=== PATIENT | female | born 1960 | race Caucasian/White ===

== ENCOUNTER 2017-07-16 08:10 | Inpatient (IN) | payer OTHER ==
[2017-07-16 08:19] VITALS: BMI 27.0
--- NOTE | 2017-07-16 08:40 | PDOC ---
Attending Attestation - HPI HPI: 07/16/17 09:35 The patient is a 56 year old female with no significant past medical history who presents to the emergency department this morning with diarrhea for 5 days. Patient states that she had [employer] yesterday and notes that she does not normally eat fast food. - Physicial Exam PE: 07/16/17 09:36 GENERAL: Awake, alert, and fully oriented, in no acute distress HEAD: No signs of trauma EYES: PERRLA, EOMI, sclera anicteric, conjunctiva clear ENT: Auricles normal inspection, hearing grossly normal, nares patent, oropharynx clear without exudates. Moist mucosa NECK: Normal ROM, supple, no lymphadenopathy, JVD, or masses LUNGS: Breath sounds equal, clear to auscultation bilaterally. No wheezes, and no crackles HEART: Regular rate and rhythm, normal S1 and S2, no murmurs, rubs or gallops ABDOMEN: Soft, nontender, normoactive bowel sounds. No guarding, no rebound. No masses EXTREMITIES: Normal range of motion, no edema. No clubbing or cyanosis. No cords, erythema, or tenderness NEUROLOGICAL: Cranial nerves II through XII grossly intact. Normal speech, normal gait SKIN: Warm, Dry, normal turgor, no rashes or lesions noted. - Medical Decision Making 07/16/17 09:37 Documentation prepared by Deepak Julien, acting as medical assistant instructor for Carmella Aldana DO. <Deepak Julien - Last Filed: 07/16/17 09:35> - Resident Resident Name: Alfred Maxwell - ED Attending Attestation I have performed the following: I have examined & evaluated the patient, The case was reviewed & discussed with the resident, I agree w/resident's findings & plan, Exceptions are as noted - Medical Decision Making 07/16/17 08:40 I, Dr. Carmella Aldana DO, attest that this document has been prepared under my direction and personally reviewed by me in its entirety. I further attest, that it accurately reflects all work, treatment, procedures and medical decision -making performed by me. 07/16/17 09:30 56yo female with 5 episodes of diarrhea and then low bp this AM pt denies abd pain exam normal no abd ttp will check labs, ivf hydration reassess 07/16/17 11:39 elevated wbc, given diarrhea will obtain ct abd/pelvis to r/o colitis 07/16/17 15:03 pt states feeling better pmd marybeth easley discussed lab and imaging results. Pt willing to stay for further eval 07/16/17 15:[address] Jones accepts pt to service will start levaquin and flagyl <Carmella Aldana - Last Filed: 07/16/17 15:27>
--- NOTE | 2017-07-16 09:10 | PDOC ---
History of Present Illness - General Chief Complaint: Blood Pressure Problem Stated Complaint: LOW BLOOD PRESSURE Time Seen by Provider: 07/16/17 08:33 - History of Present Illness Initial Comments: 07/16/17 09:21 56 yo with no significant pmh who presents with vomitting. Patient reports four episodes of non bloody, loose stools this AM, followed by transient episode of lightheadedness, with no asx LOC or vomiting. Reports at home SBP ~90 following diarrhea. Reports eating at fast food restaurant yesterday evening. Mild, now resolved, burning, epigastria pain. diarrhea, BPR. Has not attempted PO intake today. Denies F/C, CP, SOB, urinary complaints, vaginal bleeding, weakness. Denies h/o abdominal procedures. Currently asymptomatic. Past History - Past Medical History Allergies/Adverse Reactions: Allergies Allergy/AdvReac Type Severity Reaction Status Date / Time acetaminophen [From Percocet] Allergy Severe heart Verified 07/16/17 08:14 palpitations oxycodone [From Percocet] Allergy Severe heart Verified 07/16/17 08:14 palpitations Home Medications: Ambulatory Orders Amlodipine Besylate [Norvasc -] 10 mg PO DAILY 05/18/15 COPD: No HTN: Yes - Immunization History Immunization Up to Date: No - Suicide/Smoking/Psychosocial Hx Smoking History: Never smoked Have you smoked in the past 12 months: No Hx Alcohol Use: No Drug/Substance Use Hx: No Review of Systems - Review of Systems Comments:: 07/16/17 09:09 GENERAL/CONSTITUTIONAL: No fever or chills. No weakness. HEAD, EYES, EARS, NOSE AND THROAT: No change in vision. No ear pain or discharge. No sore throat.- CARDIOVASCULAR: No chest pain or shortness of breath RESPIRATORY: No cough, wheezing, or hemoptysis. GASTROINTESTINAL: + Diarrhea. No vomitting or constipation. GENITOURINARY: No dysuria, frequency, or change in urination. MUSCULOSKELETAL: No joint or muscle swelling or pain. No neck or back pain. SKIN: No rash NEUROLOGIC: No headache, vertigo, loss of consciousness, or change in strength/ sensation. ENDOCRINE: No increased thirst. No abnormal weight change HEMATOLOGIC/LYMPHATIC: No anemia, easy bleeding, or history of blood clots. ALLERGIC/IMMUNOLOGIC: No hives or skin allergy. *Physical Exam - Vital Signs Last Vital Signs Temp Pulse Resp BP Pulse Ox 98.9 F 80 18 111/54 100 07/16/17 08:31 07/16/17 08:45 07/16/17 08:45 07/16/17 08:45 07/16/17 08:45 - Physical Exam Comments: 07/16/17 09:09 GENERAL: Awake, alert, and fully oriented, in no acute distress HEAD: No signs of trauma, normocephalic, atraumatic EYES: PERRLA, EOMI, sclera anicteric, conjunctiva clear ENT: Hearing grossly normal, nares patent, oropharynx clear without exudates. Moist mucosa NECK: Normal ROM, supple, no lymphadenopathy, JVD, or masses LUNGS: No distress, speaks full sentences, clear to auscultation bilaterally HEART: Regular rate and rhythm, normal S1 and S2, no murmurs, rubs or gallops, peripheral pulses normal and equal bilaterally. ABDOMEN: Soft, nontender, normoactive bowel sounds. No guarding, no rebound. No masses. No rigidity. neg CVA ttp. Neg suprapubic ttp. EXTREMITIES : Normal inspection, Normal range of motion, no edema. No clubbing or cyanosis. SKIN: Warm, Dry, normal turgor, no rashes or lesions noted. ED Treatment Course - LABORATORY CBC & Chemistry Diagram: 07/16/17 09:50 07/16/17 09:50 Medical Decision Making - Medical Decision Making 07/16/17 09:31 56 yo with h/o cholecystectomy who presents with four episodes of non bloody, loose stools this AM, followed by transient episode of lightheadedeness, with no asx vomitting. Reports at home SBP ~90 following diarrhea. Mild, now resolved , burning, epigastria pain. Has not attempted PO intake today. Denies F/C, CP, SOB, urinary complaints, vaginal bleeding, weakness. Denies h/o abdominal procedures. Currently asymptomatic. Physical exam unremarkable. BP 111/54. S/s most likely 2/2 viral gastroenteritis. Neg exam findings. Less likely colitis, appendicitis, cystitis. ED Course: CBC, CMP, Lipase, Cardiac Profile, UA EKG Pepcid, Zofran, IV LR 07/16/17 10:53 WBC: 21.0. 92 % PMN 02/04/18 10:53 H/H: 16.2/49.3 07/16/17 12:43 UA: Neg CMP: Unremarkable 07/16/17 15:10 CT AP: Fluid filled non dilated small bowel loops. Possible enteritis. Contacted PMD Nixon Cadena (PMD). Will admit to obs med/surg. Belen Whalen. *DC/Admit/Observation/Transfer Diagnosis at time of Disposition: Abdominal pain - Discharge Dispostion Admit: Yes - Referrals - Patient Instructions - Post Discharge Activity
[2017-07-16] MEDS ORDERED: ONDANSETRON 4 MG/2 ML VIAL IVPUSH ONE (09:22)
[2017-07-16] MEDS ORDERED: LACTATED RINGERS SOLUTION 1000 ML INFUS.BAG IV ONE (09:30)
[2017-07-16] MEDS ORDERED: ONDANSETRON 4 MG/2 ML VIAL ONE (09:41)
[2017-07-16] MEDS ORDERED: FAMOTIDINE 20 MG/50 ML IVPB 20 MG/50 ML MG IVPB ONE ×2 (09:42→10:00)
[2017-07-16 10:32] LABS: HEMATOCRIT 49.3 % (32.4-45.2); HEMOGLOBIN 16.2 GM/dL (10.7-15.3); MCH 29.2 pg (25.7-33.7); MCHC 32.9 g/dl (32.0-36.0); MEAN CELL VOLUME 88.8 fl (80-96); MEAN PLT VOLUME 9.4 fl (7.5-11.1); PLATELET COUNT 220 K/MM3 (134-434); RBC 5.55 M/mm3 (3.60-5.2); RDW 12.7 % (11.6-15.6)
[2017-07-16 10:37] LABS: URINE APPEARANCE SLCLOUDY; URINE BILIRUBIN NEGATIVE (NEGATIVE); URINE BLOOD NEGATIVE (NEGATIVE); URINE COLOR YELLOW; URINE GLUCOSE (UA) 1+ (NEGATIVE); URINE KETONE NEGATIVE (NEGATIVE); URINE LEUK ESTERASE NEGATIVE (NEGATIVE); URINE NITRITE NEGATIVE (NEGATIVE); URINE UROBILINOGEN NEGATIVE mg/dL (0.2-1.0)
[2017-07-16 10:39] LABS: URINE PROTEIN 2+ (NEGATIVE)
[2017-07-16 10:40] LABS: INR 0.99 (0.82-1.09); PROTHROMBIN TIME (PATIENT) 11.2 SEC (9.98-11.88); URINE HYALINE CAST 26 /lpf; URINE MUCUS MODERATE
[2017-07-16] MEDS ORDERED: LACTATED RINGERS SOLUTION 1,000 ML/1,000 ML INFUS.BAG IV STA (10:55)
[2017-07-16 10:56] LABS: ALBUMIN 4.4 g/dl (3.4-5.0); ALK PHOS 98 U/L (45-117); ANION GAP 8 (8-16); BILIRUBIN,TOTAL 0.6 mg/dL (0.2-1.0); BLOOD UREA NITROGEN 19 mg/dL (7-18); CHLORIDE 109 mmol/L (98-107); CO2 25 mmol/L (21-32); CREATININE 0.8 mg/dL (0.55-1.02); GLUCOSE,RANDOM 94 mg/dL (74-106); LIPASE 147 U/L (73-393); POTASSIUM 4.3 mmol/L (3.5-5.1); SGOT/AST 32 U/L (15-37); SGPT/ALT 62 U/L (12-78); SODIUM 142 mmol/L (136-145); TOT PROT 8.1 g/dl (6.4-8.2)
[2017-07-16 11:14] LABS: PLATELET ESTIMATE ADEQUATE
--- NOTE | 2017-07-16 12:16 | EKG ---
Test Reason : Blood Pressure : / mmHG Vent. Rate : 059 BPM Atrial Rate : 059 BPM P-R Int : 140 ms QRS Dur : 082 ms QT Int : 418 ms P-R-T Axes : 064 039 046 degrees QTc Int : 413 ms SINUS BRADYCARDIA POOR R WAVE PROGRESSION ABNORMAL ECG WHEN COMPARED WITH ECG OF 19-MAY-2015 03:47, NOTE ERROR IN LEAD V4, RECOMMEND REPEAT TRACING Confirmed by BRENDA MONTILLA, JUDY ([id number]) on 07/16/2017 12:16:39 PM Referred By: Confirmed By:JUDY GUTIERREZ MD
[2017-07-16] MEDS ORDERED: ACETAMINOPHEN 325 MG TABLET (FP) PO PRN (17:38)
[2017-07-16] MEDS ORDERED: ONDANSETRON 4 MG/2 ML VIAL IVPUSH PRN (17:41)
[2017-07-16] MEDS: D5-1/2NS+20 MEQ KCL - 20 MEQ/1,000 ML INFUS.BAG IV SCH (19:41)
[2017-07-16] MEDS: HEPARIN NA (PORCINE) 5,000 UNITS/ML 1ML VIAL SQ SCH (21:16)
[2017-07-17 07:35] LABS: BASO % 0.3 % (0-2.0); EOS % 0.3 % (0-4.5); HEMATOCRIT 39.6 % (32.4-45.2); HEMOGLOBIN 13.1 GM/dL (10.7-15.3); LYMPH % 17.5 % (8-40); MCH 29.3 pg (25.7-33.7); MCHC 33.1 g/dl (32.0-36.0); MEAN CELL VOLUME 88.5 fl (80-96); MEAN PLT VOLUME 9.9 fl (7.5-11.1); MONO % 8.7 % (3.8-10.2); NEUT % 73.2 % (42.8-82.8); PLATELET COUNT 155 K/MM3 (134-434); RBC 4.47 M/mm3 (3.60-5.2); RDW 12.8 % (11.6-15.6); WHITE BLOOD COUNT 8.8 K/mm3 (4.0-10.0)
[2017-07-17 08:16] LABS: ALBUMIN 3.1 g/dl (3.4-5.0); ANION GAP 9 (8-16); BILIRUBIN,TOTAL 0.6 mg/dL (0.2-1.0); BLOOD UREA NITROGEN 9 mg/dL (7-18); CALCIUM 7.8 mg/dL (8.5-10.1); CHLORIDE 108 mmol/L (98-107); CO2 25 mmol/L (21-32); CREATININE 0.7 mg/dL (0.55-1.02); GLUCOSE,RANDOM 112 mg/dL (74-106); MAGNESIUM 1.8 mg/dL (1.8-2.4); POTASSIUM 3.8 mmol/L (3.5-5.1); SGOT/AST 20 U/L (15-37); SGPT/ALT 39 U/L (12-78); SODIUM 142 mmol/L (136-145); TOT PROT 5.8 g/dl (6.4-8.2)
[2017-07-17 08:17] LABS: ALK PHOS 62 U/L (45-117)
[2017-07-17] MEDS: D5-1/2NS+20 MEQ KCL - 20 MEQ/1,000 ML INFUS.BAG IV SCH ×3 (08:30→22:11)
[2017-07-17] MEDS: HEPARIN NA (PORCINE) 5,000 UNITS/ML 1ML VIAL SQ SCH ×2 (09:58→21:05)
--- NOTE | 2017-07-17 10:32 | HP ---
Admitting History and Physical - Primary Care Physician PCP: Tello Ford - Admission History of Present Illness: 56 yo with h/o cholecystectomy, htn who presents with four episodes of non bloody, loose stools tp er yesterday Also complained of dizziness had [employer] no other family member sick Wbc - 22 [address] ct - colitis Pt given fluids/ abx- admitted Case was discussed with er physician. Orders were written. pt seen today by me fells better. denies pain diarrhea better low grade temp History Source: Patient Limitations to Obtaining History: No Limitations - Past Medical History Cardiovascular: Yes: HTN - Past Surgical History Past Surgical History: Yes: Cholecystectomy - Smoking History Smoking history: Never smoked Have you smoked in the past 12 months: No - Alcohol/Substance Use Hx Alcohol Use: No Home Medications - Allergies Allergies/Adverse Reactions: Allergies Allergy/AdvReac Type Severity Reaction Status Date / Time acetaminophen [From Percocet] Allergy Severe heart Verified 07/16/17 08:14 palpitations oxycodone [From Percocet] Allergy Severe heart Verified 07/16/17 08:14 palpitations - Home Medications Home Medications: Ambulatory Orders Amlodipine Besylate [Norvasc -] 10 mg PO DAILY 05/18/15 Family Disease History - Family Disease History Family History: Unremarkable Review of Systems - Review of Systems Constitutional: reports: Fever, Loss of Appetite, Weakness Eyes: reports: No Symptoms HENT: reports: No Symptoms Neck: reports: No Symptoms Cardiovascular: reports: No Symptoms Respiratory: reports: No Symptoms Gastrointestinal: reports: Diarrhea, Nausea Genitourinary: reports: No Symptoms Musculoskeletal: reports: No Symptoms Neurological: reports: No Symptoms Endocrine: reports: No Symptoms Hematology/Lymphatic: reports: No Symptoms Psychiatric: reports: No Symptoms Physical Examination Vital Signs: Vital Signs Temperature 99.9 F H 07/17/17 06:00 Pulse Rate 82 07/17/17 06:00 Respiratory Rate 20 07/17/17 06:00 Blood Pressure 116/63 07/17/17 06:00 O2 Sat by Pulse Oximetry (%) 100 07/16/17 17:54 Constitutional: Yes: No Distress, Calm Eyes: Yes: Conjunctiva Clear HENT: Yes: Other (mucosa moist) Neck: Yes: Supple Cardiovascular: Yes: Regular Rate and Rhythm Respiratory: Yes: CTA Bilaterally Gastrointestinal: Yes: Normal Bowel Sounds, Soft Edema: No Neurological: Yes: Alert Labs: CBC, BMP 07/17/17 06:00 07/17/17 06:00 Imaging - Results Cat Scan: Report Reviewed EKG: Report Reviewed Problem List - Problems (1) Colitis Assessment/Plan: [place] Infectious. Better Continue Abx Wbc decreased significantly start on diet. Pt reports had colonoscopy 2 yrs ago and was ok. f/u labs GI consult requested. stool culture/ c diff pending Anticipate short stay will follow Code(s): K52.9 - NONINFECTIVE GASTROENTERITIS AND COLITIS, UNSPECIFIED (2) Hypertension Assessment/Plan: Hold Medicine for now Code(s): I10 - ESSENTIAL (PRIMARY) HYPERTENSION Qualifiers: Hypertension type: essential hypertension Qualified Code(s): I10 - Essential (primary) hypertension (3) DVT prophylaxis Assessment/Plan: Heparin s/q Ambulate Code(s): OFC6753 -
--- NOTE | 2017-07-17 19:20 | CON.GI ---
Consult Consult Specialty:: GI Referred by:: Dr Sruthi Jones - History of Present Illness History of Present Illness: 56 y/o F with PMH of HTN was doing well until yesterday when she developed non bloody diarrhea several times associated with mild abdominal pain assoicated with leukocystosis, SHe denies recent antiobiotic use and recent travel history. - Past Medical History Cardio/Vascular: Yes: HTN - Past Surgical History Past Surgical History: Yes: Cholecystectomy - Alcohol/Substance Use Hx Alcohol Use: No - Smoking History Smoking history: Never smoked Have you smoked in the past 12 months: No Home Medications - Allergies Allergies/Adverse Reactions: Allergies Allergy/AdvReac Type Severity Reaction Status Date / Time acetaminophen [From Percocet] Allergy Severe heart Verified 07/16/17 08:14 palpitations oxycodone [From Percocet] Allergy Severe heart Verified 07/16/17 08:14 palpitations - Home Medications Home Medications: Ambulatory Orders Amlodipine Besylate [Norvasc -] 10 mg PO DAILY 05/18/15 Family Disease History - Family Disease History Family Disease History: CA: Mother (pancreatic cancer) Physical Exam-GI Vital Signs: Vital Signs Temperature 98 F 07/17/17 16:15 Pulse Rate 66 07/17/17 16:15 Respiratory Rate 20 07/17/17 16:15 Blood Pressure 117/62 07/17/17 16:15 O2 Sat by Pulse Oximetry (%) 98 07/17/17 09:00 Constitutional: Yes: Well Nourished Eyes: Yes: Conjunctiva Clear HENT: Yes: Atraumatic Neck: Yes: Supple Cardiovascular: Yes: Regular Rate and Rhythm Respiratory: Yes: CTA Bilaterally ...Auscultate: No: No Bowel Sounds ...Palpate: Yes: Soft. No: Guarding, Hepatomegaly, Mass, Pulsatile Mass, Splenomegaly, Tenderness Labs: CBC, BMP 07/17/17 06:00 07/17/17 06:00 INR, PTT INR 0.99 (0.82-1.09) 07/16/17 09:50 Problem List - Problems (1) Infectious diarrhea Assessment/Plan: resolving R> advance diet--lactose free low afiber diet made aware to follow -up Thank you Code(s): A09 - INFECTIOUS GASTROENTERITIS AND COLITIS, UNSPECIFIED
[2017-07-18 08:03] LABS: BASO % 0.7 % (0-2.0); EOS % 2.2 % (0-4.5); HEMATOCRIT 40.5 % (32.4-45.2); HEMOGLOBIN 13.4 GM/dL (10.7-15.3); LYMPH % 31.5 % (8-40); MCH 29.3 pg (25.7-33.7); MCHC 33.2 g/dl (32.0-36.0); MEAN CELL VOLUME 88.4 fl (80-96); MEAN PLT VOLUME 9.7 fl (7.5-11.1); MONO % 11.7 % (3.8-10.2); NEUT % 53.9 % (42.8-82.8); PLATELET COUNT 151 K/MM3 (134-434); RBC 4.58 M/mm3 (3.60-5.2); RDW 12.8 % (11.6-15.6); WHITE BLOOD COUNT 6.8 K/mm3 (4.0-10.0)
[2017-07-18 08:09] LABS: ALBUMIN 3.3 g/dl (3.4-5.0); ANION GAP 7 (8-16); BLOOD UREA NITROGEN 6 mg/dL (7-18); CALCIUM 8.1 mg/dL (8.5-10.1); CHLORIDE 108 mmol/L (98-107); CO2 28 mmol/L (21-32); CREATININE 0.7 mg/dL (0.55-1.02); GLUCOSE,RANDOM 114 mg/dL (74-106); POTASSIUM 3.9 mmol/L (3.5-5.1); SGOT/AST 33 U/L (15-37); SGPT/ALT 55 U/L (12-78); SODIUM 143 mmol/L (136-145)
[2017-07-18 08:11] LABS: ALK PHOS 61 U/L (45-117); BILIRUBIN,TOTAL 0.5 mg/dL (0.2-1.0); TOT PROT 6.2 g/dl (6.4-8.2)
[2017-07-18] MEDS: HEPARIN NA (PORCINE) 5,000 UNITS/ML 1ML VIAL SQ SCH ×2 (09:54→21:17)
--- NOTE | 2017-07-18 11:54 | PN ---
Progress Note, Physician Chief Complaint: Events noted brother at bedside pt has loose stools after each meal no abdominal pain tolerating po - Current Medication List Current Medications: Active Medications Heparin Sodium (Porcine) (Heparin -) 5,000 unit SQ BID [facility] Last Admin: 07/18/17 09:54 Dose: 5,000 unit Potassium Chloride/Dextrose/Sod Cl (D5-1/2ns+20 Meq Kcl -) 20 meq in 1,000 mls @ 100 mls/hr IV ASDIR [facility] Last Admin: 07/17/17 22:11 Dose: 100 mls/hr Metronidazole (Flagyl 500mg Premixed Ivpb -) 500 mg in 100 mls @ 100 mls/hr IVPB Q6H-IV [facility] Last Admin: 07/18/17 08:33 Dose: 100 mls/hr Levofloxacin (Levaquin 500 Mg Premixed Ivpb -) 500 mg in 100 mls @ 100 mls/hr IVPB DAILY [facility] Last Admin: 07/18/17 09:54 Dose: 100 mls/hr Ondansetron HCl (Zofran Injection) 4 mg IVPUSH Q6H PRN PRN Reason: NAUSEA - Objective Vital Signs: Vital Signs Temperature 98.4 F 07/18/17 09:00 Pulse Rate 70 07/18/17 09:00 Respiratory Rate 16 07/18/17 09:00 Blood Pressure 127/80 07/18/17 09:00 O2 Sat by Pulse Oximetry (%) 98 07/17/17 21:00 Constitutional: Yes: No Distress Cardiovascular: Yes: Regular Rate and Rhythm Respiratory: Yes: CTA Bilaterally Gastrointestinal: Yes: Normal Bowel Sounds, Soft. No: Distention, Tenderness Edema: No Labs: CBC, BMP 07/18/17 06:30 07/18/17 06:30 INR, PTT INR 0.99 (0.82-1.09) 07/16/17 09:50 Problem List - Problems (1) Abdominal pain Code(s): R10.9 - UNSPECIFIED ABDOMINAL PAIN Qualifiers: Abdominal location: upper abdomen, unspecified Qualified Code(s): R10.10 - Upper abdominal pain, unspecified (2) Hypertension Code(s): I10 - ESSENTIAL (PRIMARY) HYPERTENSION Qualifiers: Hypertension type: essential hypertension Qualified Code(s): I10 - Essential (primary) hypertension (3) Infectious diarrhea Code(s): A09 - INFECTIOUS GASTROENTERITIS AND COLITIS, UNSPECIFIED Assessment/Plan plan iv fluids-- decrease rate iv antibiotics stool studies pending WBC normal will dc home in AM if better on po antibiotics
[2017-07-18] MEDS: D5-1/2NS+20 MEQ KCL - 20 MEQ/1,000 ML INFUS.BAG IV SCH (14:35)
--- NOTE | 2017-07-18 18:17 | PN ---
GI Progress Note Subjective: diarrhea resolved, no nausea no vomiting,tlerating diet - Objective Vital Signs: Vital Signs Temperature 98.2 F 07/18/17 17:23 Pulse Rate 63 07/18/17 17:23 Respiratory Rate 20 07/18/17 17:23 Blood Pressure 136/62 07/18/17 17:23 O2 Sat by Pulse Oximetry (%) 98 07/18/17 09:00 Constitutional: Well Nourished Eyes: Yes: Conjunctiva Clear HENT: Yes: Atraumatic Neck: Yes: Supple Cardiovascular: Yes: Regular Rate and Rhythm Respiratory: Yes: CTA Bilaterally ...Palpate: Yes: Soft. No: Firm/Rigid, Guarding, Hepatomegaly, Mass, Pulsatile Mass, Splenomegaly, Tenderness Labs: CBC, BMP 07/18/17 06:30 07/18/17 06:30 INR, PTT INR 0.99 (0.82-1.09) 07/16/17 09:50 Problem List - Problems (1) Infectious diarrhea Assessment/Plan: r. made aware to followup will change to po antibiotics Code(s): A09 - INFECTIOUS GASTROENTERITIS AND COLITIS, UNSPECIFIED
[2017-07-19] MEDS: D5-1/2NS+20 MEQ KCL - 20 MEQ/1,000 ML INFUS.BAG IV SCH (06:56)
[2017-07-19] MEDS: HEPARIN NA (PORCINE) 5,000 UNITS/ML 1ML VIAL SQ SCH (09:54)
--- NOTE | 2017-07-19 11:59 | DS ---
Physical Examination Vital Signs: Vital Signs Temperature 98.6 F 07/19/17 06:28 Pulse Rate 59 L 07/19/17 06:28 Respiratory Rate 18 07/19/17 06:28 Blood Pressure 124/77 07/19/17 06:28 O2 Sat by Pulse Oximetry (%) 98 07/18/17 21:00 Constitutional: Yes: No Distress, Calm Cardiovascular: Yes: Regular Rate and Rhythm Respiratory: Yes: CTA Bilaterally Gastrointestinal: Yes: Normal Bowel Sounds, Soft, Abdomen, Obese. No: Distention, Tenderness Edema: No Labs: CBC, BMP 07/18/17 06:30 07/18/17 06:30 Discharge Summary Reason For Visit: ENTERITIS Current Active Problems Abdominal pain (Acute) Colitis (Acute) DVT prophylaxis (Acute) Hypertension (Acute) Infectious diarrhea (Acute) Hospital Course: Admitted for diarrhea and dizziness Found to have WBC-- 22,000, elevated Hb-- likley due to dehydration placed on iv antibiotics and fluids CT abd-- enteritis probable Pt improved seen by GI Diarrhea is less electrolytes normal and WBC normalized pt stable to be dc home on po antibiotics follow up with GI and PMD advised to avoid dairy for now Also advised to stay home from work and may return on 07/24 Condition: Improved - Instructions Diet, Activity, Other Instructions: Pt was admitted here on 07/16 and discharged on 07/19/17- seen by GI-- diagnosed to have enteritis -- able to return to work with no restriction on 07/24/17. Referrals: Olga Perry MD [Staff Physician] - Disposition: HOME - Home Medications Comprehensive Discharge Medication List: Ambulatory Orders Amlodipine Besylate [Norvasc -] 10 mg PO DAILY 05/18/15 Levofloxacin [Levaquin] 500 mg PO DAILY #4 tablet 07/18/17 metroNIDAZOLE [Flagyl -] 500 mg PO TID #12 tablet 07/18/17
[2017-07-19 12:44] VITALS: BP 122/61; PULSE 58; TEMP 98
== END 2017-07-19 13:33 | disposition home or self-care (01) | DRG 392 ==
LOC: JER 08:10 → JERBED 15:56 → OBSVTOIN 17:38 → J8W 19:16
PROVIDERS: ADMIT Internal Medicine; ATTEND Internal Medicine
DX: A09 Infectious gastroenteritis and colitis, unspecified (principal); I10 Essential (primary) hypertension; R10.9 Unspecified abdominal pain; E86.0 Dehydration
CPT/HCPCS: 36415; 74177-TC; 80053; 81003; 81015; 82550; 83690; 83735; 84484; 85025; 85610; 85651; 87040; 87045; 87046; 87324; 87449; 93005; 93010; 99285-25; G0378; J1644